=== PATIENT | female | born 1940 | race Caucasian/White ===

== ENCOUNTER 2016-04-15 06:02 | Day surgery (SDC) | payer MEDICARE, OTHER ==
[2016-04-15] MEDS ORDERED: LACTATED RINGERS 1,000 ML ONE (06:46)
--- NOTE | 2016-04-15 10:42 | OP ---
DATE OF PROCEDURE: 04/15/16 PREPROCEDURE DIAGNOSIS: 1. Anemia, possible occult gastrointestinal blood loss. POSTPROCEDURE DIAGNOSIS: 1. Gastritis with erosions in the antrum. PROCEDURE: 1. Esophagogastroduodenoscopy. 2. Biopsy. SURGEON: Asa Lackey MD. SEDATION: Monitored anesthesia care. FINDINGS: This lady has heme positive stool and iron deficiency anemia. Colonoscopy two months ago was negative. The patient does take iron supplement also an aspirin and NSAID. DESCRIPTION OF PROCEDURE: With the patient under sedation, the endoscope was introduced. The esophagus was normal with small hiatal hernia is present in the lower end of the esophagus. There is no significant esophagitis, ulceration or stricture. Normal cardia and fundus of the stomach. The body of the stomach is unremarkable. The antrum shows significant erosions and inflammation with erythematous changes, typical of minimal erosive gastritis. Biopsy was obtained. Pylorus was wide open. Duodenal bulb, first, second and third part of the duodenum normal. The posterior pharynx is normal. Normal esophagus inlet. The body of the esophagus unremarkable. EG junction at 40 cm from gumline. No hiatal hernia, ulceration, inflammation, or stricture. Normal cardia, fundus, body, antrum, and pylorus. Biopsy was obtained from the body to exclude gastritis. Clinically, there is no abnormality identified. Duodenal bulb, first, second and third part of the duodenum normal. FINAL IMPRESSION: 1. Small hiatal hernia. 2. No evidence of esophagitis. 3. Gastritis with minimal erosions at the antrum. PLAN: 1. Carafate 1 gram 3 to 4 times a day for the next 6 weeks. 2. Avoidance of NSAIDs. #[id number] cc: MD Asa Brambila MD [facility]
[2016-04-15 11:04] VITALS: BP 131/77; TEMP 97.5; O2SAT 100
[2016-04-15] MEDS ORDERED: LIDOCAINE 1% 10 ML VIAL INJ ONE (12:00)
[2016-04-15] MEDS ORDERED: PROPOFOL 200 MG/20 ML VIAL IV ONE (12:00)
== END 2016-04-15 11:00 | disposition home or self-care (01) ==
LOC: AMB 06:02
PROVIDERS: ATTEND Internal Medicine Gastroenterology
DX: D50.9 Iron deficiency anemia, unspecified (principal); K29.50 Unspecified chronic gastritis without bleeding; K44.9 Diaphragmatic hernia without obstruction or gangrene; Z88.5 Allergy status to narcotic agent; Z88.0 Allergy status to penicillin; Z88.8 Allergy status to other drugs, medicaments and biological substances; Z79.899 Other long term (current) drug therapy
CPT/HCPCS: 00740; 43239; 88305; J3490; J7120

== ENCOUNTER → 2016-09-10 | Outpatient (CLI) | payer MEDICARE, OTHER | END | disposition home or self-care (01) | LOC: GMAL 11:38 | PROVIDERS: ATTEND Family Medicine | DX: D51.3 Other dietary vitamin B12 deficiency anemia (principal); E55.9 Vitamin D deficiency, unspecified ==

== ENCOUNTER → 2016-09-17 | Outpatient (CLI) | payer MEDICARE, OTHER | LOC: GMAL 16:39 | PROVIDERS: ATTEND Family Medicine | DX: E03.9 Hypothyroidism, unspecified (principal) ==

== ENCOUNTER → 2017-01-13 | Outpatient (CLI) | payer MEDICARE, OTHER | END | disposition home or self-care (01) | LOC: GMAL 17:27 | PROVIDERS: ATTEND Family Medicine | DX: M06.9 Rheumatoid arthritis, unspecified (principal) ==

== ENCOUNTER → 2017-02-11 | Outpatient (CLI) | payer MEDICARE, OTHER ==
--- NOTE | 2017-02-12 17:07 | MAM ---
EXAM DESCRIPTION: 3D Screening BILATERAL : Digital Mammography. CLINICAL HISTORY: 76 years Female SCREENING . No complaints. Sister with breast cancer. Hysterectomy. No HRT. COMPARISON: 2-D digital screening bilateral examinations November 06 2015 and 08/02/2014.. Report from prior examination also reviewed. TECHNIQUE: Bilateral CC and MLO projection full-field images, 3-D tomosynthesis digital mammographic technique. Also bilateral synthesized CC/ MLO full-field images. CAD not utilized. FINDINGS: The breast parenchymal density pattern is: Heterogeneously dense breast tissue, which may obscure small masses. No skin thickening or nipple retraction bilateral solitary microcalcifications. Bilateral vascular calcifications. Bilateral axillary lymph nodes. No focal, stellate mass or density, focal asymmetry , and no suspicious microcalcifications bilaterally. Stable mammograms compared to prior study, taking into account differences in mammographic technique IMPRESSION: BI-RADS CATEGORY: 2 - BENIGN FINDINGS. FOLLOW UP: Routine digital bilateral screening, one year interval from February 2017. Written communication explaining the IMPRESSION and follow-up, will be mailed to the patient and referring health care provider. According to the [employer], yearly mammograms are recommended starting at age 40 and continuing as long as a woman is in good health. Any breast change noted on a breast self-exam should be reported promptly to the patient's healthcare provider. Breast MRI is recommended for women with an approximately 20-25% or greater lifetime risk of breast cancer, including women with a strong family history of breast or ovarian cancer and women who have been treated for Hodgkin's disease. A negative mammographic report should not delay tissue diagnosis in patients with significant clinical history or physical findings. Extremely dense breast tissue limits the sensitivity of digital mammography. Electronically signed by: Valdez Gomez MD 02/12/2017 5:06 PM [facility]
== END | disposition home or self-care (01) ==
LOC: MAMMO 16:13
PROVIDERS: ATTEND Family Medicine
DX: Z12.31 Encounter for screening mammogram for malignant neoplasm of breast (principal)
CPT/HCPCS: 77063; G0202

== ENCOUNTER → 2017-05-21 | Outpatient (CLI) | payer MEDICARE, OTHER ==
--- NOTE | 2017-05-24 07:55 | MRI ---
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 There is also a large joint effusion. Slight medial patellar tracking. Grade 4 chondrosis from the patellar apex into the medial patellar facet. This area measures up to 9 mm transverse. Extensor tendons are intact. The ACL and PCL are intact. There is a vague horizontal and oblique degenerative tear throughout the medial meniscus with undersurface extension in the meniscal body and free edge fraying and truncation posteriorly to the root. There is also prominent intrasubstance degeneration of the lateral meniscus diffusely with borderline discoid morphology on the coronal images. This is consistent with an early degenerative tear especially in light of the discoid-like morphology. Mild thickening of the MCL with adjacent reactive-appearing edema or mild sprain. Low-grade chondrosis of the tibiofemoral compartments up to grade 3 in the lateral tibial plateau. IMPRESSION: Large joint effusion and Mcgrath's cyst Degenerative medial and lateral meniscal tears No stabilizing ligament disruption with minimal edema along the MCL Chondrosis up to grade 3 lateral tibial plateau and grade 4 in the patella apex and medial facet junction Electronically signed by: Juno Lebron MD 05/24/2017 7:54 AM [employer]
== END ==
LOC: MRI 13:00
PROVIDERS: ATTEND Family Medicine
DX: S83.242A Other tear of medial meniscus, current injury, left knee, initial encounter (principal); S83.282A Other tear of lateral meniscus, current injury, left knee, initial encounter; M71.22 Synovial cyst of popliteal space [Baker], left knee; M25.462 Effusion, left knee

== ENCOUNTER → 2017-08-02 | Outpatient (CLI) | payer MEDICARE, OTHER ==
--- NOTE | 2017-08-03 11:30 | US ---
EXAM DESCRIPTION: Renal CLINICAL HISTORY: 77 years Female, CHRONIC KIDNEY DISEASE COMPARISON: None. TECHNIQUE: Retroperitoneal sonogram was performed to evaluate the kidneys and bladder. FINDINGS: Right kidney Right renal length is 9.4 cm. There is increased cortical echogenicity with mild diffuse cortical thinning consistent with senescent changes are chronic renal parenchymal disease. No right renal mass or shadowing stone. Small 8 mm and 10 mm cortical lesions are thought to be cysts. A larger cyst measures 2.2 cm. No hydronephrosis. Left kidney Left renal length is 9.7 cm. Minimal cortical thickness appears mildly decreased diffusely. Cortical echogenicity is normal to slightly increased. No left renal mass, cyst or shadowing stone. No hydronephrosis. Images of the bladder are not included on this study. IMPRESSION: Bilateral diffuse renal cortical thinning without hydronephrosis or focal renal mass. Three right renal cysts. Electronically signed by: Alexys Hall MD 08/03/2017 11:28 AM CDT
== END ==
LOC: US 16:05 → EEVIPCON 16:05
PROVIDERS: ATTEND Internal Medicine Nephrology
DX: N18.4 Chronic kidney disease, stage 4 (severe) (principal)

== ENCOUNTER → 2017-08-04 | Outpatient (CLI) | payer MEDICARE, OTHER | LOC: LAB.O 08:45 | PROVIDERS: ATTEND Internal Medicine Nephrology | DX: N18.4 Chronic kidney disease, stage 4 (severe) (principal) ==

== ENCOUNTER → 2017-09-09 | Outpatient (CLI) | payer MEDICARE, OTHER | LOC: LAB.O 10:15 | PROVIDERS: ATTEND Internal Medicine Nephrology | DX: N18.4 Chronic kidney disease, stage 4 (severe) (principal) ==

== ENCOUNTER → 2018-01-25 | Outpatient (CLI) | payer MEDICARE, OTHER | LOC: GMAL 13:42 | PROVIDERS: ATTEND Family Medicine | DX: D51.3 Other dietary vitamin B12 deficiency anemia (principal); E03.9 Hypothyroidism, unspecified; E55.9 Vitamin D deficiency, unspecified; E78.49 Other hyperlipidemia ==

== ENCOUNTER → 2018-02-17 | Outpatient (CLI) | payer MEDICARE, OTHER ==
--- NOTE | 2018-02-18 16:32 | MAM ---
EXAM DESCRIPTION: 3D Screening BILATERAL : Digital Mammography. CLINICAL HISTORY: 77 years Female SCREENING . No complaints or personal history of breast cancer. Remote family history of breast cancer. Hysterectomy 4 9 years ago. Childbirth. Taking hormone therapy more than 5 years ago... Lifetime risk of developing breast cancer (Tyrer-Cuzick model)(%): 2.4. COMPARISON: Bilateral screening digital breast tomosynthesis 02/11/2017. TECHNIQUE: Bilateral CC and MLO projection full-field images, digital tomosynthesis mammographic technique. Bilateral digital 2-D full-field MLO images. CAD not available for tomosynthesis or 2-D images. FINDINGS: The breast parenchymal density pattern is: Heterogeneously dense breast tissue, which may obscure small masses. No skin thickening or nipple retraction. . Bilateral solitary microcalcifications. Bilateral vascular calcifications. No new focal, stellate mass or density, focal asymmetry , and no suspicious microcalcifications bilaterally. Stable mammograms compared to prior study. IMPRESSION: Benign exam. BIRAD CATEGORY: 2 BENIGN FINDINGS. RECOMMENDATIONS: FOLLOW UP: Routine digital bilateral mammographic screening, one year interval from February 2018. Written communication explaining the IMPRESSION and follow-up, will be mailed to the patient and referring health care provider. According to the [employer], yearly mammograms are recommended starting at age 40 and continuing as long as a woman is in good health. Any breast change noted on a breast self-exam should be reported promptly to the patient's healthcare provider. Breast MRI is recommended for women with an approximately 20-25% or greater lifetime risk of breast cancer, including women with a strong family history of breast or ovarian cancer and women who have been treated for Hodgkin's disease. A negative mammographic report should not delay tissue diagnosis in patients with significant clinical history or physical findings. Extremely dense breast tissue limits the sensitivity of digital mammography. Electronically signed by: Valdez Gomez MD 02/18/2018 4:30 PM [employer]
== END ==
LOC: MAMMO 13:00
PROVIDERS: ATTEND Family Medicine
DX: Z12.31 Encounter for screening mammogram for malignant neoplasm of breast (principal)

== ENCOUNTER → 2019-02-02 | Outpatient (CLI) | payer MEDICARE, OTHER | LOC: GMAL 10:33 | PROVIDERS: ATTEND Family Medicine | DX: D51.3 Other dietary vitamin B12 deficiency anemia (principal); E03.9 Hypothyroidism, unspecified; E55.9 Vitamin D deficiency, unspecified; I10 Essential (primary) hypertension; E78.49 Other hyperlipidemia ==

== ENCOUNTER → 2019-02-21 | Outpatient (CLI) | payer MEDICARE, OTHER ==
--- NOTE | 2019-02-23 21:44 | MAM ---
EXAM DESCRIPTION: 3D Screening BILATERAL : Digital Mammography. CLINICAL HISTORY: 78 years Female Screening . No complaints. No personal history of breast cancer. Remote family history of breast cancer. Menarche age 15. First childbirth age 18. Postmenopausal unknown age. Hormone replacement 5 or more years ago. No genetic history. Lifetime risk of developing breast cancer (Tyrer-Cuzick model)(%): 2.2. COMPARISON: Bilateral screening digital breast tomosynthesis 02/17/2018 and 11 February 2017.. TECHNIQUE: Bilateral CC and MLO projection full-field images, digital tomosynthesis mammographic technique. Bilateral digital 2-D full-field MLO images. CAD not available for tomosynthesis or 2-D images. FINDINGS: The breast parenchymal density pattern is: Heterogeneously dense breast tissue, which may obscure small masses. No skin thickening or nipple retraction. Bilateral solitary microcalcifications. Bilateral vascular calcifications. No marker posterior inferior left breast. No new focal, stellate mass or density, focal asymmetry , and no suspicious microcalcifications bilaterally. Stable mammograms compared to prior study. IMPRESSION: Benign exam. BIRAD CATEGORY: 2 BENIGN FINDINGS. RECOMMENDATIONS: FOLLOW UP: Routine digital bilateral mammographic screening, one year interval from February 2019. Written communication explaining the IMPRESSION and follow-up, will be mailed to the patient and referring health care provider. According to the [employer], yearly mammograms are recommended starting at age 40 and continuing as long as a woman is in good health. Any breast change noted on a breast self-exam should be reported promptly to the patient's healthcare provider. Breast MRI is recommended for women with an approximately 20-25% or greater lifetime risk of breast cancer, including women with a strong family history of breast or ovarian cancer and women who have been treated for Hodgkin's disease. A negative mammographic report should not delay tissue diagnosis in patients with significant clinical history or physical findings. Extremely dense breast tissue limits the sensitivity of digital mammography. Electronically signed by: Valdez Gomez MD 02/23/2019 9:43 PM [employer]
== END | disposition home or self-care (01) ==
LOC: MAMMO 13:21
PROVIDERS: ATTEND Family Medicine
DX: Z12.31 Encounter for screening mammogram for malignant neoplasm of breast (principal)

== ENCOUNTER → 2019-03-16 | Outpatient (CLI) | payer MEDICARE, OTHER | LOC: GMAL 16:54 | PROVIDERS: ATTEND Family Medicine | DX: M10.9 Gout, unspecified (principal); Z79.899 Other long term (current) drug therapy ==

== ENCOUNTER → 2019-04-28 | Outpatient (CLI) | payer MEDICARE, OTHER ==
--- NOTE | 2019-05-01 09:15 | MRI ---
EXAM DESCRIPTION: Lumbar Spine w/o Contrast : Magnetic Resonance Imaging. CLINICAL HISTORY: PAIN COMPARISON: None. TECHNIQUE: Multiplanar, multiple standard sequences, non contrast MRI, lumbar spine. FINDINGS: L5-S1: The disc is well visualized on axial T2 series 501, image 3. Disc is desiccated with minimal disc space loss. Hyperintense T2-weighted annular fissure in the right posterior margin abutting the descending right S1 nerve. Minimal hypertrophy in the posterior elements (facet joints and posterior flavum ligaments). AP canal diameter 13 mm. Moderate bilateral foraminal narrowing. L4-L5: Disc desiccation and minimal disc space loss. Posterior broad-based bulge. Grade 1 anterolisthesis 3 mm. Moderate degenerative hypertrophy of the posterior elements. 4 mm cyst abutting the right lamina just posterior to the right facet joint and impressing on the right posterior thecal sac. AP canal diameter 11 mm. Deformity of the bilateral L4 pars interarticulares possibly spondylolysis. Mild to moderate bilateral foraminal narrowing. L3-L4: Disc desiccation and minimal disc space loss. No bulging. Hypertrophic degenerative changes in the posterior elements. Impressing on the lateral thecal sac. AP canal diameter 12 mm. Mild bilateral foraminal narrowing. L2-L3: Marked disc desiccation and disc space loss with moderate endplate reactive changes in the midline into the right of midline in the endplates. Schmorl's node superior L3 endplate. Posterior broad-based disc bulge. Mild degenerative hypertrophy of the posterior elements. AP canal diameter 13 mm. Bilateral moderate foraminal narrowing more on the right, with disc spur complex encroachment. L1-L2: Normal signal in the disc with disc space preserved. No bulging. Posterior elements unremarkable. Canal and foramina are patent. T12-L1: Normal signal in the disc with disc space preserved. No bulging. Posterior elements unremarkable. Canal and foramina are patent. Conus terminates at this level. Minimal levoscoliosis mid lumbar spine. Hyperintense circumscribed T1 and T2 hemangioma in the superior right L1 vertebral body. Paravertebral soft tissues are negative.. Distal cord normal signal and caliber. Normal marrow signal in the remaining vertebral bodies and the posterior elements. Vertebral bodies are not compressed at any level. IMPRESSION: 1. 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 Consider confirmation with oblique lumbar spine radiographs. Probable synovial cyst posterior to the right L4-L5 facet abutting the thecal sac and the right lamina. 2. Desiccation of the L5-S1 disc with right posterior annular fissure which can be a source of pain. 3. Mild to moderate canal stenosis at L3-L4 with degenerative hypertrophy of the posterior elements. 4. Diffuse spondylosis and disc space loss at L2-L3 with mild to moderate canal and foraminal narrowing. Electronically signed by: Valdez Gomez MD 05/01/2019 9:14 AM [facility]
== END ==
LOC: MRI 11:05
PROVIDERS: ATTEND Family Medicine
DX: M43.16 Spondylolisthesis, lumbar region (principal); M51.36 Other intervertebral disc degeneration, lumbar region; M48.061 Spinal stenosis, lumbar region without neurogenic claudication; M51.37 Other intervertebral disc degeneration, lumbosacral region; M47.896 Other spondylosis, lumbar region; M79.672 Pain in left foot; M79.671 Pain in right foot

== ENCOUNTER → 2019-11-02 | Outpatient (CLI) | payer MEDICARE, OTHER | LOC: GMAL 10:45 | PROVIDERS: ATTEND Family Medicine | DX: M06.09 Rheumatoid arthritis without rheumatoid factor, multiple sites (principal); D64.9 Anemia, unspecified ==

== ENCOUNTER → 2020-02-08 | Outpatient (CLI) | payer MEDICARE, OTHER | LOC: GMAL 10:53 | PROVIDERS: ATTEND Family Medicine | DX: D51.3 Other dietary vitamin B12 deficiency anemia (principal); E55.9 Vitamin D deficiency, unspecified; I10 Essential (primary) hypertension; M06.9 Rheumatoid arthritis, unspecified; E03.9 Hypothyroidism, unspecified; E78.49 Other hyperlipidemia ==

== ENCOUNTER → 2020-03-15 | Outpatient (CLI) | payer MEDICARE, OTHER | LOC: GMAL 10:31 | PROVIDERS: ATTEND Family Medicine | DX: D64.9 Anemia, unspecified (principal); I10 Essential (primary) hypertension ==

== ENCOUNTER → 2020-05-28 | Outpatient (CLI) | payer MEDICARE, OTHER | LOC: GMAL 16:49 | PROVIDERS: ATTEND Family Medicine | DX: D51.3 Other dietary vitamin B12 deficiency anemia (principal); I10 Essential (primary) hypertension; N18.2 Chronic kidney disease, stage 2 (mild) ==